=== PATIENT | male | born 1960 | race Caucasian/White ===

== ENCOUNTER 2023-02-20 21:43 | Inpatient (IN) | payer SELFPAY ==
[2023-02-20 22:30] LABS: #Basophils 0.1 thou/uL (0.0-0.2); #Eosinphils 0.2 thou/uL (0.0-0.7); #Monocytes 0.9 thou/uL (0.11-0.59); #Neutrophils 10.6 thou/uL (1.40-6.50); %Basophils 0.5 % (0.0-1.0); %Eosinophils 1.5 % (0.0-10.0); %Lymphocytes 13.2 % (21.0-51.0); %Monocytes 6.2 % (0.0-10.0); %Neutrophils 76.4 % (42.0-75.0); Hematocrit 32.8 % (42.0-52.0); Hemoglobin 11.3 g/dL (14.0-18.0); Mean Corpuscular HGB CONC 34.5 g/dL (32.0-36.0); Mean Corpuscular Hemoglobin 32.8 pg (27.0-31.0); Mean Corpuscular Volume 95.1 fl (78.0-98.0); Mean Platelet Volume 10.2 fL (7.4-10.4); Platelet Count 160 10x3/uL (130-400); RBC Distribution Width 13.3 % (11.5-14.5); Red Blood Cell (RBC) Count 3.45 mill/uL (4.70-6.10); White Blood Cell (WBC) Count 13.8 10x3/uL (4.8-10.8)
[2023-02-20 22:56] LABS: ALT (SGPT) 39 U/L (8-55); AST (SGOT) 39 U/L (5-34); Albumin 3.7 g/dL (3.4-4.8); Alkaline Phosphatase 58 U/L (40-110); Anion Gap 11 mmol/L (10-20); BUN (Urea Nitrogen) 71 mg/dL (8.4-25.7); Bilirubin, Total 0.3 mg/dL (0.2-1.2); Calc. Creatinine Clearance 0 mL/min (70-130); Calcium 9.1 mg/dL (7.8-10.44); Carbon Dioxide 22 mmol/L (23-31); Chloride 110 mmol/L (98-107); Estimated GFR 47; Globulin 2.5 g/dL (2.4-3.5); Glucose 233 mg/dL (80-115); Lipase 82 U/L (8-78); Potassium 5.3 mmol/L (3.5-5.1); Protein, Total 6.2 g/dL (5.8-8.1); Sodium 138 mmol/L (136-145)
[2023-02-20 23:28] LABS: Bacteria/HPF None Seen HPF (None Seen); Bilirubin Negative (Negative); Blood, Urine Negative (Negative); CAUTI Indications for Culture Fever or rigors; Clarity Clear (Clear); Glucose, Urine (Dipstick) Greater than 1000 mg/dL (Negative); Ketone, Urine Negative (Negative); Leukocyte Negative Leu/uL (Negative); Nitrite Negative (Negative); Protein, Urine (Dipstick) Negative (Neg-Trace); RBC/HPF 0-3 HPF (0-3); Specific Gravity, Urine 1.023 (1.002-1.036); Squamous Epithelial None Seen HPF (0-3); Urobilinogen Normal mg/dL (Less than 2); WBC/HPF 0-3 HPF (0-3)
[2023-02-20 23:29] LABS: Critical Call Chem Troponin I NUR.JLS2@2328
[2023-02-20 23:42] LABS: Urine Culture Reflex No No
[2023-02-20] MEDS ORDERED: Pantoprazole 40 MG VIAL ONE (23:44)
[2023-02-21] MEDS ORDERED: Glucagon 1 MG/ML KIT IM PRN (00:29)
[2023-02-21] MEDS ORDERED: Dextrose 5% in Water 1,000 ML IV PRN (00:29)
[2023-02-21] MEDS ORDERED: HumaLOG 300 UNITS/3 ML VIAL SC PRN (00:29)
[2023-02-21] MEDS ORDERED: Dextrose 50% Abboject 50 ML SYRINGE SLOW IVP PRN (00:29)
[2023-02-21] MEDS ORDERED: Ondansetron ODT 4 MG TAB PO PRN (00:30)
[2023-02-21] MEDS ORDERED: Ondansetron PF 4 MG/2 ML Vial IVP PRN (00:30)
[2023-02-21] MEDS ORDERED: Insulin Regular 300 UNITS/3 ML VIAL IVP SCH (00:30)
[2023-02-21] MEDS ORDERED: Pantoprazole 80 MG in Sodium Chloride 0.9% 100 ML IVP SCH (00:30)
[2023-02-21] MEDS ORDERED: Acetaminophen 500 MG TAB ONE (00:54)
[2023-02-21] MEDS ORDERED: fentaNYL 50 mcg/mL 1 mL Vial ONE ×2 (00:55→11:01)
[2023-02-21] MEDS ORDERED: Pantoprazole 80 MG, Admixture Fee 1 EACH in Sodium Chloride 0.9% 100 ML IVPB SCH (02:00)
[2023-02-21] MEDS: Dextrose 5 %-0.45 % NaCl 1,000 ML IV SCH ×2 (03:00→11:17)
[2023-02-21 04:41] LABS: #Basophils 0.1 thou/uL (0.0-0.2); #Eosinphils 0.3 thou/uL (0.0-0.7); #Monocytes 0.9 thou/uL (0.11-0.59); #Neutrophils 7.7 thou/uL (1.40-6.50); %Basophils 0.4 % (0.0-1.0); %Eosinophils 2.2 % (0.0-10.0); %Lymphocytes 22.9 % (21.0-51.0); %Monocytes 7.3 % (0.0-10.0); %Neutrophils 65.4 % (42.0-75.0); Hematocrit 35.7 % (42.0-52.0); Hemoglobin 12.3 g/dL (14.0-18.0); Mean Corpuscular HGB CONC 34.5 g/dL (32.0-36.0); Mean Corpuscular Hemoglobin 31.6 pg (27.0-31.0); Mean Platelet Volume 9.8 fL (7.4-10.4); Platelet Count 143 10x3/uL (130-400); RBC Distribution Width 15.2 % (11.5-14.5); Red Blood Cell (RBC) Count 3.89 mill/uL (4.70-6.10); White Blood Cell (WBC) Count 11.7 10x3/uL (4.8-10.8)
[2023-02-21 04:47] LABS: Mean Corpuscular Volume 91.8 fl (78.0-98.0)
[2023-02-21 04:58] LABS: Lactic Acid 0.7 mmol/L (0.5-2.2)
[2023-02-21 05:12] LABS: Anion Gap 11 mmol/L (10-20); BUN (Urea Nitrogen) 61 mg/dL (8.4-25.7); Calc. Creatinine Clearance 81 mL/min (70-130); Calcium 8.5 mg/dL (7.8-10.44); Carbon Dioxide 18 mmol/L (23-31); Chloride 115 mmol/L (98-107); Estimated GFR 59; Glucose 159 mg/dL (80-115); Potassium 4.6 mmol/L (3.5-5.1); Sodium 139 mmol/L (136-145)
[2023-02-21 06:47] LABS: Critical Call Chem Troponin I NUR.MGD@0645; Troponin I 14.698 ng/mL (< 0.028)
[2023-02-21 08:01] LABS: Hematocrit 36.3 % (42.0-52.0)
[2023-02-21 08:31] LABS: Troponin I 19.322 ng/mL (< 0.028)
[2023-02-21] MEDS ORDERED: FLU VACC QS2023-24(6MOS UP)/PF 60 MCG/0.5 ML SYRINGE IM ONE (09:00)
[2023-02-21] MEDS ORDERED: Heparin 25,000 units/D5W 500 ML IV SCH (10:00)
[2023-02-21] MEDS ORDERED: Heparin 10,000 UNITS/ 10 ML VIAL SLOW IVP SCH (10:00)
[2023-02-21] MEDS ORDERED: Verapamil 5 MG/2 ML VIAL ONE (11:01)
[2023-02-21] MEDS ORDERED: Adenosine 6 mg (2 mL) VIAL ONE (11:01)
[2023-02-21] MEDS ORDERED: Heparin 10,000 UNITS/ 10 ML VIAL ONE (11:01)
[2023-02-21] MEDS ORDERED: Midazolam HCl 2 mg/2 ml Vial ONE (11:01)
[2023-02-21] MEDS ORDERED: Nitroglycerin 50 MG/250 ML BOT 250 ML ONE (11:02)
[2023-02-21] MEDS ORDERED: Lidocaine 1% (PF) 30 ML VIAL ONE (11:02)
[2023-02-21] MEDS ORDERED: Communication Order-Pharmacy FS SCH (11:30)
[2023-02-21] MEDS ORDERED: DOPamine 400 MG/D5W 250 ML 0 ML ONE (12:19)
[2023-02-21] MEDS ORDERED: Furosemide 40 MG (4 mL) VIAL ONE ×2 (13:22→13:32)
[2023-02-21] MEDS ORDERED: Iopamidol 370 76% 100 ML VIAL ONE (13:37)
[2023-02-21 15:47] LABS: Hematocrit 41.6 % (42.0-52.0)
[2023-02-21 16:27] LABS: Hematocrit 41.7 % (42.0-52.0)
[2023-02-21 20:48] LABS: Hematocrit 38.4 % (42.0-52.0)
[2023-02-22 04:24] LABS: #Basophils 0.1 thou/uL (0.0-0.2); #Eosinphils 0.2 thou/uL (0.0-0.7); #Monocytes 1.2 thou/uL (0.11-0.59); #Neutrophils 8.2 thou/uL (1.40-6.50); %Basophils 0.4 % (0.0-1.0); %Eosinophils 1.9 % (0.0-10.0); %Lymphocytes 21.8 % (21.0-51.0); %Monocytes 9.3 % (0.0-10.0); %Neutrophils 65.3 % (42.0-75.0); Hematocrit 37.9 % (42.0-52.0); Hemoglobin 12.9 g/dL (14.0-18.0); Mean Corpuscular Hemoglobin 31.2 pg (27.0-31.0); Mean Corpuscular Volume 91.8 fl (78.0-98.0); Mean Platelet Volume 9.9 fL (7.4-10.4); Platelet Count 173 10x3/uL (130-400); RBC Distribution Width 15.7 % (11.5-14.5); Red Blood Cell (RBC) Count 4.13 mill/uL (4.70-6.10); White Blood Cell (WBC) Count 12.6 10x3/uL (4.8-10.8)
[2023-02-22 04:50] LABS: ALT (SGPT) 46 U/L (8-55); AST (SGOT) 97 U/L (5-34); Alkaline Phosphatase 68 U/L (40-110); Anion Gap 14 mmol/L (10-20); BUN (Urea Nitrogen) 38 mg/dL (8.4-25.7); Bilirubin, Total 0.9 mg/dL (0.2-1.2); Calc. Creatinine Clearance 81 mL/min (70-130); Calcium 9.2 mg/dL (7.8-10.44); Carbon Dioxide 20 mmol/L (23-31); Chloride 107 mmol/L (98-107); Estimated GFR 59; Globulin 2.9 g/dL (2.4-3.5); Glucose 156 mg/dL (80-115); Potassium 4.1 mmol/L (3.5-5.1); Protein, Total 6.9 g/dL (5.8-8.1); Sodium 137 mmol/L (136-145)
[2023-02-22] MEDS: HumaLOG 300 UNITS/3 ML VIAL SC PRN ×2 (10:35→16:45)
[2023-02-22] MEDS ORDERED: Insulin Glargine 30 UNITS/0.3 ML VIAL SC SCH (11:15)
[2023-02-22] MEDS: Nicotine 14 MG PATCH TOP SCH (18:38)
[2023-02-22] MEDS: Insulin Glargine 30 UNITS/0.3 ML VIAL SC SCH (20:53)
[2023-02-22] MEDS: Metoprolol Tartrate 50 MG TAB PO SCH (20:54)
[2023-02-22] MEDS: Pantoprazole 40 MG VIAL IVP SCH (20:54)
[2023-02-23 06:50] LABS: #Eosinphils 0.3 thou/uL (0.0-0.7); #Neutrophils 4.2 thou/uL (1.40-6.50); %Basophils 0.5 % (0.0-1.0); %Eosinophils 3.9 % (0.0-10.0); %Lymphocytes 29.6 % (21.0-51.0); %Neutrophils 52.9 % (42.0-75.0); Hematocrit 33.2 % (42.0-52.0); Hemoglobin 11.3 g/dL (14.0-18.0); Mean Corpuscular Hemoglobin 31.4 pg (27.0-31.0); Mean Corpuscular Volume 92.2 fl (78.0-98.0); Platelet Count 143 10x3/uL (130-400); RBC Distribution Width 15.2 % (11.5-14.5)
[2023-02-23] MEDS: Levothyroxine 150 MCG TAB PO SCH (06:54)
[2023-02-23 07:03] LABS: Anion Gap 9 mmol/L (10-20); BUN (Urea Nitrogen) 27 mg/dL (8.4-25.7); Calc. Creatinine Clearance 85 mL/min (70-130); Calcium 8.6 mg/dL (7.8-10.44); Carbon Dioxide 25 mmol/L (23-31); Chloride 109 mmol/L (98-107); Estimated GFR 64; Glucose 134 mg/dL (80-115); Potassium 4.2 mmol/L (3.5-5.1); Sodium 139 mmol/L (136-145)
[2023-02-23] MEDS: Empagliflozin 25 MG TAB PO SCH (08:19)
[2023-02-23] MEDS: Pantoprazole 40 MG VIAL IVP SCH ×2 (08:19→20:26)
[2023-02-23] MEDS: Insulin Glargine 30 UNITS/0.3 ML VIAL SC SCH ×2 (08:20→20:27)
[2023-02-23] MEDS: Atorvastatin Calcium 40 MG TAB PO SCH (08:21)
[2023-02-23] MEDS: Aspirin 81 mg Enteric Coated Tablet PO SCH (08:22)
[2023-02-23] MEDS: Metoprolol Tartrate 50 MG TAB PO SCH (08:39)
[2023-02-23] MEDS ORDERED: Lisinopril 20 MG TAB PO SCH (09:00)
[2023-02-23] MEDS ORDERED: Sodium Chloride 0.9% 250 ML IV SCH (14:45)
[2023-02-23] MEDS: Nicotine 14 MG PATCH TOP SCH (18:05)
[2023-02-24] MEDS: Metoprolol Tartrate 50 MG TAB PO SCH ×3 (00:19→20:34)
[2023-02-24] MEDS: Levothyroxine 150 MCG TAB PO SCH (06:09)
[2023-02-24] MEDS: Insulin Glargine 30 UNITS/0.3 ML VIAL SC SCH ×2 (09:05→20:34)
[2023-02-24] MEDS: Empagliflozin 25 MG TAB PO SCH (09:05)
[2023-02-24] MEDS: Atorvastatin Calcium 40 MG TAB PO SCH (09:05)
[2023-02-24] MEDS: Aspirin 81 mg Enteric Coated Tablet PO SCH (09:05)
[2023-02-24] MEDS: Pantoprazole 40 MG VIAL IVP SCH ×2 (09:06→20:34)
[2023-02-24] MEDS: Acetaminophen 325 MG TAB PO PRN (12:45)
[2023-02-24] MEDS: Nicotine 14 MG PATCH TOP SCH (18:28)
[2023-02-25] MEDS: Levothyroxine 150 MCG TAB PO SCH (05:41)
[2023-02-25 06:55] LABS: #Basophils 0.1 thou/uL (0.0-0.2); #Eosinphils 0.4 thou/uL (0.0-0.7); #Monocytes 0.8 thou/uL (0.11-0.59); #Neutrophils 5.1 thou/uL (1.40-6.50); %Basophils 0.6 % (0.0-1.0); %Eosinophils 4.8 % (0.0-10.0); %Lymphocytes 25.9 % (21.0-51.0); %Monocytes 8.7 % (0.0-10.0); %Neutrophils 59.3 % (42.0-75.0); Hemoglobin 11.9 g/dL (14.0-18.0); Mean Corpuscular Hemoglobin 31.8 pg (27.0-31.0); Mean Corpuscular Volume 93.6 fl (78.0-98.0); Mean Platelet Volume 10.2 fL (7.4-10.4); Platelet Count 180 10x3/uL (130-400); Red Blood Cell (RBC) Count 3.74 mill/uL (4.70-6.10); White Blood Cell (WBC) Count 8.6 10x3/uL (4.8-10.8)
[2023-02-25 07:12] LABS: Anion Gap 11 mmol/L (10-20); BUN (Urea Nitrogen) 25 mg/dL (8.4-25.7); Calc. Creatinine Clearance 90 mL/min (70-130); Carbon Dioxide 23 mmol/L (23-31); Chloride 105 mmol/L (98-107); Estimated GFR 67; Glucose 111 mg/dL (80-115); Sodium 135 mmol/L (136-145)
[2023-02-25] MEDS: Empagliflozin 25 MG TAB PO SCH (09:16)
[2023-02-25] MEDS: Insulin Glargine 30 UNITS/0.3 ML VIAL SC SCH ×2 (09:16→20:03)
[2023-02-25] MEDS: Atorvastatin Calcium 40 MG TAB PO SCH (09:16)
[2023-02-25] MEDS: Aspirin 81 mg Enteric Coated Tablet PO SCH (09:16)
[2023-02-25] MEDS: Pantoprazole 40 MG VIAL IVP SCH ×2 (09:16→20:06)
[2023-02-25] MEDS: Metoprolol Tartrate 50 MG TAB PO SCH ×2 (09:16→20:06)
[2023-02-25] MEDS: Acetaminophen 325 MG TAB PO PRN ×2 (09:18→22:12)
[2023-02-25] MEDS: Nicotine 14 MG PATCH TOP SCH (18:08)
[2023-02-26] MEDS: Levothyroxine 150 MCG TAB PO SCH (06:03)
[2023-02-26 09:19] LABS: #Basophils 0.1 thou/uL (0.0-0.2); #Monocytes 1.1 thou/uL (0.11-0.59); #Neutrophils 12.2 thou/uL (1.40-6.50); %Basophils 0.4 % (0.0-1.0); %Eosinophils 0.2 % (0.0-10.0); %Lymphocytes 12.3 % (21.0-51.0); %Monocytes 7.1 % (0.0-10.0); %Neutrophils 79.7 % (42.0-75.0); Hematocrit 33.7 % (42.0-52.0); Hemoglobin 11.2 g/dL (14.0-18.0); Manual Diff?? YES; Mean Corpuscular HGB CONC 33.2 g/dL (32.0-36.0); Mean Corpuscular Hemoglobin 30.4 pg (27.0-31.0); Mean Corpuscular Volume 91.6 fl (78.0-98.0); Mean Platelet Volume 9.9 fL (7.4-10.4); Platelet Count 214 10x3/uL (130-400); RBC Distribution Width 13.2 % (11.5-14.5); Red Blood Cell (RBC) Count 3.68 mill/uL (4.70-6.10); White Blood Cell (WBC) Count 15.2 10x3/uL (4.8-10.8)
[2023-02-26 09:32] LABS: Anion Gap 9 mmol/L (10-20); BUN (Urea Nitrogen) 10 mg/dL (8.4-25.7); Calc. Creatinine Clearance 165 mL/min (70-130); Calcium 8.2 mg/dL (7.8-10.44); Carbon Dioxide 29 mmol/L (23-31); Chloride 105 mmol/L (98-107); Estimated GFR 105; Glucose 116 mg/dL (80-115); Potassium 3.7 mmol/L (3.5-5.1); Sodium 139 mmol/L (136-145)
[2023-02-26] MEDS: Atorvastatin Calcium 40 MG TAB PO SCH (09:37)
[2023-02-26] MEDS: Pantoprazole 40 MG VIAL IVP SCH ×2 (09:37→20:37)
[2023-02-26] MEDS: Aspirin 81 mg Enteric Coated Tablet PO SCH (09:37)
[2023-02-26] MEDS: Empagliflozin 25 MG TAB PO SCH (09:38)
[2023-02-26] MEDS: Insulin Glargine 30 UNITS/0.3 ML VIAL SC SCH ×2 (09:38→20:37)
[2023-02-26] MEDS: Metoprolol Tartrate 50 MG TAB PO SCH (09:42)
[2023-02-26 10:02] LABS: Band 27 % (5-11); CellaVision Operator ID LAB.KW3; Lymphocytes 14 % (21-51); Monocytes 3 % (0-10); Neutrophil 55 % (42-75); Platelet Adequacy Comment Platelets Normal; RBC Morphology Within Normal Limits; Total Cell Count 100
[2023-02-26] MEDS ORDERED: Polyethylene Glycol 3350 17 GM Packet PO PRN (10:04)
[2023-02-26] MEDS ORDERED: Glycerin Adult Supp. (24 ct jar) PR PRN (10:04)
[2023-02-26] MEDS ORDERED: Polyethylene Glycol 3350 17 GM Packet PO SCH (10:15)
[2023-02-26] MEDS: Nicotine 14 MG PATCH TOP SCH (18:26)
[2023-02-27] MEDS: Atorvastatin Calcium 40 MG TAB PO SCH ×2 (05:12→20:11)
[2023-02-27] MEDS: Levothyroxine 150 MCG TAB PO SCH (05:13)
[2023-02-27] MEDS ORDERED: Communication Order-Pharmacy FS SCH (06:00)
[2023-02-27] MEDS ORDERED: Heparin 10,000 UNITS/1 ML VIAL 30,000 UNITS in Sodium Chloride 0.9% 1,000 ML FS SCH (07:00)
[2023-02-27] MEDS ORDERED: fentaNYL PF 100 MCG/2 ML SYRINGE ONE (08:53)
[2023-02-27] MEDS ORDERED: Lidocaine 2% PF 5 ML VIAL ONE (08:53)
[2023-02-27] MEDS ORDERED: Vecuronium 10 MG VIAL ONE (08:53)
[2023-02-27] MEDS ORDERED: Etomidate 40 MG (20 mL) VIAL ONE (08:53)
[2023-02-27] MEDS ORDERED: PROPOFOL 20 ML ONE (08:53)
[2023-02-27] MEDS ORDERED: Dexamethasone 20 MG/5 ML VIAL ONE (08:55)
[2023-02-27] MEDS ORDERED: PHENYLEPHRINE-NS 100 MCG/ML 10 ML SYRINGE ONE ×3 (08:58→13:21)
[2023-02-27] MEDS ORDERED: Midazolam HCl 2 mg/2 ml Vial ONE ×4 (08:59→09:36)
[2023-02-27] MEDS ORDERED: Polyethylene Glycol 3350 17 GM Packet PO SCH (09:00)
[2023-02-27] MEDS ORDERED: Dexmedetomidine 200 MCG/2 ML VIAL ONE (09:01)
[2023-02-27] MEDS ORDERED: NOREPINEPHRINE 8 MG/250 ML-D5W 250 ML ONE (09:01)
[2023-02-27] MEDS ORDERED: ePHEDrine Sulfate 50 MG/10 ML VIAL ONE (09:03)
[2023-02-27] MEDS ORDERED: EPINEPHrine 1 MG/ML VIAL ONE (09:10)
[2023-02-27] MEDS ORDERED: Bupivacaine PF 0.5% 30 ML VIAL ONE (09:10)
[2023-02-27] MEDS ORDERED: Albumin 5% 500 ML ONE (09:10)
[2023-02-27] MEDS ORDERED: Dexamethasone 4 mg/ml Vial ONE (09:10)
[2023-02-27] MEDS ORDERED: Ondansetron ODT 4 MG TAB ONE (09:23)
[2023-02-27] MEDS ORDERED: Lidocaine 1% PF 5 ML VIAL ONE (09:27)
[2023-02-27] MEDS ORDERED: fentaNYL 50 mcg/mL 1 mL Vial ONE ×2 (09:36→13:03)
[2023-02-27] MEDS ORDERED: CEFAZOLIN 2 GM VIAL ONE (09:46)
[2023-02-27] MEDS ORDERED: Sodium Chloride 0.9% 100 ML ONE (09:46)
[2023-02-27] MEDS ORDERED: CEFAZOLIN 2 GM in Sodium Chloride 0.9% 100 ML IVPB SCH (10:00)
[2023-02-27] MEDS ORDERED: Vancomycin (BATCH) 2 GM in Premix 1 BAG IVPB SCH (10:00)
[2023-02-27] MEDS ORDERED: VANCOMYCIN IVPB SCH (10:00)
[2023-02-27] MEDS ORDERED: Protamine Sulfate 250 MG/25 ML VIAL ONE (10:27)
[2023-02-27] MEDS ORDERED: Mannitol 12.5 GM/50 ML ONE (10:27)
[2023-02-27] MEDS ORDERED: SUCCINYLCHOLINE/SOD CL,ISO/PF 200 MG/10 ML SYRINGE FS ONE (10:27)
[2023-02-27] MEDS ORDERED: Vancomycin 1 GM VIAL ONE (10:27)
[2023-02-27] MEDS ORDERED: Potassium Chloride 60 mEq (30 mL) VIAL ONE (10:27)
[2023-02-27] MEDS ORDERED: Heparin 30,000 units/30 ml VIAL ONE (10:27)
[2023-02-27] MEDS ORDERED: Aminocaproic Acid 5 GM/20 ML VIAL ONE (10:27)
[2023-02-27] MEDS ORDERED: Papaverine 60 MG/2 ML VIAL ONE (10:27)
[2023-02-27] MEDS ORDERED: Magnesium 5 GM/10 ML VIAL ONE (10:27)
[2023-02-27] MEDS ORDERED: Calcium Chloride 1 GM/10 ML Abboject SYRINGE ONE (10:27)
[2023-02-27] MEDS ORDERED: Lidocaine 2% PF 100 mg/5 ml Syringe ONE (10:27)
[2023-02-27] MEDS ORDERED: Sodium Bicarb 50 mEq/50 ML VIAL ONE (10:27)
[2023-02-27] MEDS ORDERED: Thrombin 5000 UNITS/5 ML VIAL ONE (10:27)
[2023-02-27] MEDS ORDERED: Rocuronium Bromide 10 MG/ML (10ML VIAL) ONE (10:27)
[2023-02-27] MEDS ORDERED: Insulin Regular 300 UNITS/3 ML VIAL ONE (12:54)
[2023-02-27] MEDS ORDERED: Acetaminophen 325 MG TAB PO PRN (13:30)
[2023-02-27] MEDS ORDERED: Ondansetron PF 4 MG/2 ML Vial IVP PRN (13:30)
[2023-02-27] MEDS ORDERED: fentaNYL 50 mcg/mL 1 mL Vial SLOW IVP PRN (13:30)
[2023-02-27] MEDS ORDERED: Promethazine HCl 25 MG/ML VIAL IM PRN (13:30)
[2023-02-27] MEDS ORDERED: Nitroglycerin 50 MG/250 ML BOT 250 ML IVPB PRN (13:30)
[2023-02-27] MEDS ORDERED: Hetastarch 6% 500 ML 500 ML IVPB PRN (13:30)
[2023-02-27] MEDS ORDERED: hydrALAZINE 20 MG/ML VIAL SLOW IVP PRN (13:30)
[2023-02-27] MEDS ORDERED: traMADol HCl 50 MG TAB PO PRN (13:30)
[2023-02-27] MEDS ORDERED: Post-Op Insulin Drip Protocol IVPB ONE (13:30)
[2023-02-27] MEDS ORDERED: Mag-Al 1200 mg/1200 mg/30 ML UDCUP PO PRN (13:30)
[2023-02-27] MEDS ORDERED: Ipratropium/Albuterol 3 ML NEB NEB PRN (13:30)
[2023-02-27] MEDS ORDERED: Guaifenesin DM 100-10/5 ML UDCUP PO PRN (13:30)
[2023-02-27] MEDS ORDERED: Bisacodyl 5 MG TAB PO PRN (13:30)
[2023-02-27] MEDS ORDERED: D5 1/2 NS w/20 mEq KCL 1,000 ML IV SCH (13:30)
[2023-02-27] MEDS ORDERED: Magnesium 2 GM/50 ML(in water) 2 GM in Premix 1 BAG IVPB SCH (13:30)
[2023-02-27] MEDS ORDERED: Albumin 5% 12.5 GM (250 mL) BOT IVPB PRN ×2 (13:30)
[2023-02-27] MEDS ORDERED: Bisacodyl 10 MG SUPP PR PRN (13:30)
[2023-02-27] MEDS ORDERED: Glucagon 1 MG/ML KIT SC PRN (13:45)
[2023-02-27] MEDS ORDERED: HUMULIN R 100 UNITS in Sodium Chloride 0.9% 100 ML IVPB SCH (13:45)
[2023-02-27] MEDS ORDERED: Dextrose 50% Abboject 50 ML SYRINGE SLOW IVP PRN (13:45)
[2023-02-27] MEDS ORDERED: Dextrose 5% in Water 1,000 ML IV PRN (13:45)
[2023-02-27] MEDS: Morphine 2 MG/ML VIAL SLOW IVP PRN ×5 (14:00→15:00)
[2023-02-27 14:10] LABS: #Basophils 0.1 thou/uL (0.0-0.2); #Eosinphils 0.2 thou/uL (0.0-0.7); #Monocytes 1.3 thou/uL (0.11-0.59); #Neutrophils 14.7 thou/uL (1.40-6.50); %Basophils 0.5 % (0.0-1.0); %Eosinophils 1.2 % (0.0-10.0); %Lymphocytes 11.9 % (21.0-51.0); %Monocytes 6.9 % (0.0-10.0); %Neutrophils 77.4 % (42.0-75.0); Hematocrit 34.2 % (42.0-52.0); Hemoglobin 11.4 g/dL (14.0-18.0); Mean Corpuscular HGB CONC 33.3 g/dL (32.0-36.0); Mean Corpuscular Hemoglobin 31.6 pg (27.0-31.0); Mean Corpuscular Volume 94.7 fl (78.0-98.0); Mean Platelet Volume 9.5 fL (7.4-10.4); Platelet Count 162 10x3/uL (130-400); RBC Distribution Width 15.1 % (11.5-14.5); Red Blood Cell (RBC) Count 3.61 mill/uL (4.70-6.10); White Blood Cell (WBC) Count 18.9 10x3/uL (4.8-10.8)
[2023-02-27 14:24] LABS: INR-International Normal Ratio 1.2; Prothrombin Time 15.7 sec (12.0-14.7)
[2023-02-27 14:25] LABS: PTT 29.1 sec (22.9-36.1)
[2023-02-27] MEDS: CEFAZOLIN 2 GM in Sodium Chloride 0.9% 100 ML IVPB SCH ×2 (14:25→21:24)
[2023-02-27] MEDS: fentaNYL 50 mcg/mL 1 mL Vial SLOW IVP PRN ×2 (14:30→20:12)
[2023-02-27 14:37] LABS: Actual Bicarbonate (HCO3a) 20.6 mEq/L (22-28); Base Excess (BEa) -6.5 mEq/L (-2.0 to +3.0); CO2 Tension 47.9 mmHg (35.0-45.0); Calcium, Ionized (arterial) 1.11 mmol/L (1.12-1.30); Carboxyhemoglobin (COHb) 0.2 gm% (0.0-3.0); Hematocrit-ABG 34 % (42.0-52.0); Hemoglobin (Hb) 11.4 g/dL (14.0-18.0); O2 Tension (PaO2), arterial 87.8 mmHg (> 80.0); Potassium - ABG Lab 3.63 mmol/L (3.70-5.30); pH, Arterial 7.252 (7.35-7.45)
[2023-02-27 14:50] LABS: Anion Gap 11 mmol/L (10-20); BUN (Urea Nitrogen) 20 mg/dL (8.4-25.7); Calc. Creatinine Clearance 102 mL/min (70-130); Carbon Dioxide 24 mmol/L (23-31); Chloride 110 mmol/L (98-107); Estimated GFR 77; Glucose 102 mg/dL (80-115); Potassium 3.7 mmol/L (3.5-5.1); Sodium 141 mmol/L (136-145)
[2023-02-27] MEDS ORDERED: Albumin 25% 0 ML ONE (15:24)
[2023-02-27 15:41] LABS: ALV-art Gradient 565.325 mmHg (0-20); Puncture Site ALINE
[2023-02-27] MEDS: Ketorolac Tromethamine 30 MG (1 mL) VIAL IVP SCH (16:55)
[2023-02-27] MEDS: Insulin Regular 300 UNITS/3 ML VIAL SC PRN ×2 (17:05→19:23)
[2023-02-27] MEDS: traMADol HCl 50 MG TAB PO PRN (18:00)
[2023-02-27] MEDS: Ipratropium/Albuterol 3 ML NEB NEB SCH ×2 (18:13→23:43)
[2023-02-27 19:35] LABS: Hematocrit 31.5 % (42.0-52.0); Hemoglobin 10.7 g/dL (14.0-18.0)
[2023-02-27] MEDS: Vancomycin (BATCH) 1.5 GM in Premix 1 BAG IVPB SCH (20:11)
[2023-02-27] MEDS ORDERED: Famotidine/PF 20 mg/2ml Vial SLOW IVP SCH (21:00)
[2023-02-28] MEDS: Insulin Regular 300 UNITS/3 ML VIAL SC PRN ×3 (00:13→20:44)
[2023-02-28] MEDS: Ketorolac Tromethamine 30 MG (1 mL) VIAL IVP SCH ×5 (00:17→23:13)
[2023-02-28 04:46] LABS: #Monocytes 1.1 thou/uL (0.11-0.59); #Neutrophils 12.1 thou/uL (1.40-6.50); %Basophils 0.1 % (0.0-1.0); %Lymphocytes 6.5 % (21.0-51.0); %Monocytes 7.4 % (0.0-10.0); %Neutrophils 85.2 % (42.0-75.0); Hematocrit 30.5 % (42.0-52.0); Hemoglobin 10.2 g/dL (14.0-18.0); Mean Corpuscular HGB CONC 33.4 g/dL (32.0-36.0); Mean Corpuscular Hemoglobin 31.2 pg (27.0-31.0); Mean Corpuscular Volume 93.3 fl (78.0-98.0); Mean Platelet Volume 9.8 fL (7.4-10.4); Platelet Count 180 10x3/uL (130-400); RBC Distribution Width 15.2 % (11.5-14.5); Red Blood Cell (RBC) Count 3.27 mill/uL (4.70-6.10); White Blood Cell (WBC) Count 14.2 10x3/uL (4.8-10.8)
[2023-02-28 05:13] LABS: Anion Gap 12 mmol/L (10-20); BUN (Urea Nitrogen) 22 mg/dL (8.4-25.7); Calc. Creatinine Clearance 96 mL/min (70-130); Calcium 7.9 mg/dL (7.8-10.44); Carbon Dioxide 18 mmol/L (23-31); Chloride 108 mmol/L (98-107); Estimated GFR 71; Glucose 153 mg/dL (80-115); Potassium 4.6 mmol/L (3.5-5.1); Sodium 133 mmol/L (136-145)
[2023-02-28] MEDS: Ipratropium/Albuterol 3 ML NEB NEB SCH ×3 (07:20→18:58)
[2023-02-28] MEDS ORDERED: Dextrose 50% Abboject 50 ML SYRINGE SLOW IVP PRN (07:29)
[2023-02-28] MEDS ORDERED: Dextrose 5% in Water 1,000 ML IV PRN (07:29)
[2023-02-28] MEDS ORDERED: Glucagon 1 MG/ML KIT IM PRN (07:29)
[2023-02-28] MEDS ORDERED: Albuterol 200 PUFF (6.7GM INHALER) INH PRN (07:30)
[2023-02-28] MEDS: Magnesium 2 GM/50 ML(in water) 2 GM in Premix 1 BAG IVPB SCH (08:43)
[2023-02-28] MEDS: fentaNYL 50 mcg/mL 1 mL Vial SLOW IVP PRN ×2 (08:43→20:26)
[2023-02-28] MEDS: Aspirin 325 MG TAB PO SCH (08:45)
[2023-02-28] MEDS: Vancomycin (BATCH) 1.5 GM in Premix 1 BAG IVPB SCH (09:06)
[2023-02-28] MEDS: traMADol HCl 50 MG TAB PO PRN (10:31)
[2023-02-28] MEDS: CEFAZOLIN 2 GM in Sodium Chloride 0.9% 100 ML IVPB SCH (18:29)
[2023-02-28] MEDS: Levothyroxine 150 MCG TAB PO SCH (18:37)
[2023-02-28] MEDS: Mometasone 200 MCG/Formoterol 5 MCG 120 PUFF INHALER INH SCH (19:02)
[2023-02-28] MEDS: Atorvastatin Calcium 40 MG TAB PO SCH (20:28)
[2023-03-01] MEDS: Ipratropium/Albuterol 3 ML NEB NEB SCH ×5 (02:03→23:23)
[2023-03-01] MEDS: Ketorolac Tromethamine 30 MG (1 mL) VIAL IVP SCH ×4 (05:32→23:54)
[2023-03-01] MEDS: Levothyroxine 150 MCG TAB PO SCH (05:33)
[2023-03-01] MEDS ORDERED: Furosemide 40 MG (4 mL) VIAL ONE (06:03)
[2023-03-01] MEDS ORDERED: Furosemide 40 MG (4 mL) VIAL SLOW IVP SCH (06:15)
[2023-03-01] MEDS: Mometasone 200 MCG/Formoterol 5 MCG 120 PUFF INHALER INH SCH ×2 (07:26→19:03)
[2023-03-01] MEDS: Aspirin 325 MG TAB PO SCH (08:30)
[2023-03-01] MEDS: Magnesium 2 GM/50 ML(in water) 2 GM in Premix 1 BAG IVPB SCH (08:30)
[2023-03-01] MEDS: NOREPINEPHRINE 8 MG/250 ML-D5W 250 ML IVPB PRN (11:17)
[2023-03-01] MEDS: fentaNYL 50 mcg/mL 1 mL Vial SLOW IVP PRN (11:23)
[2023-03-01] MEDS ORDERED: Furosemide 40 MG TAB PO SCH (16:00)
[2023-03-01] MEDS ORDERED: Albumin 25% 25 GM (100 mL) BOT IVPB SCH (17:00)
[2023-03-01] MEDS: Insulin Regular 300 UNITS/3 ML VIAL SC PRN ×2 (17:28→20:28)
[2023-03-01] MEDS ORDERED: methylPREDNISolone Sod Succ/PF 125 MG/2 ML VIAL IVP SCH (18:15)
[2023-03-01] MEDS: Atorvastatin Calcium 40 MG TAB PO SCH (20:33)
[2023-03-01 20:38] LABS: #Neutrophils 12.2 thou/uL (1.40-6.50); %Basophils 0.3 % (0.0-1.0); %Eosinophils 0.2 % (0.0-10.0); %Lymphocytes 6.2 % (21.0-51.0); %Monocytes 7.2 % (0.0-10.0); %Neutrophils 84.8 % (42.0-75.0); Hematocrit 31.1 % (42.0-52.0); Hemoglobin 10.4 g/dL (14.0-18.0); Mean Corpuscular HGB CONC 33.4 g/dL (32.0-36.0); Mean Corpuscular Hemoglobin 31.6 pg (27.0-31.0); Mean Corpuscular Volume 94.5 fl (78.0-98.0); Mean Platelet Volume 9.8 fL (7.4-10.4); Platelet Count 231 10x3/uL (130-400); RBC Distribution Width 15.3 % (11.5-14.5); Red Blood Cell (RBC) Count 3.29 mill/uL (4.70-6.10); White Blood Cell (WBC) Count 14.3 10x3/uL (4.8-10.8)
[2023-03-01 20:57] LABS: Magnesium 2.9 mg/dL (1.6-2.6); Phosphorus 4.9 mg/dL (2.3-4.7)
[2023-03-01 20:59] LABS: ALT (SGPT) 29 U/L (8-55); AST (SGOT) 45 U/L (5-34); Albumin 3.8 g/dL (3.4-4.8); Alkaline Phosphatase 86 U/L (40-110); Anion Gap 14 mmol/L (10-20); BUN (Urea Nitrogen) 38 mg/dL (8.4-25.7); Bilirubin, Total 1.3 mg/dL (0.2-1.2); Calc. Creatinine Clearance 65 mL/min (70-130); Calcium 8.5 mg/dL (7.8-10.44); Carbon Dioxide 20 mmol/L (23-31); Chloride 102 mmol/L (98-107); Estimated GFR 46; Globulin 2.5 g/dL (2.4-3.5); Glucose 210 mg/dL (80-115); Potassium 4.2 mmol/L (3.5-5.1); Protein, Total 6.3 g/dL (5.8-8.1); Sodium 132 mmol/L (136-145)
[2023-03-02] MEDS: Levothyroxine 150 MCG TAB PO SCH (05:21)
[2023-03-02] MEDS: Ketorolac Tromethamine 30 MG (1 mL) VIAL IVP SCH ×3 (05:21→18:38)
[2023-03-02] MEDS: Insulin Regular 300 UNITS/3 ML VIAL SC PRN ×2 (05:22→14:11)
[2023-03-02 05:39] LABS: #Monocytes 0.6 thou/uL (0.11-0.59); #Neutrophils 14.6 thou/uL (1.40-6.50); %Basophils 0.1 % (0.0-1.0); %Lymphocytes 4.5 % (21.0-51.0); %Monocytes 3.9 % (0.0-10.0); %Neutrophils 90.6 % (42.0-75.0); Hematocrit 30.2 % (42.0-52.0); Hemoglobin 10.1 g/dL (14.0-18.0); Mean Corpuscular HGB CONC 33.4 g/dL (32.0-36.0); Mean Corpuscular Hemoglobin 32.1 pg (27.0-31.0); Mean Corpuscular Volume 95.9 fl (78.0-98.0); Mean Platelet Volume 9.7 fL (7.4-10.4); Platelet Count 228 10x3/uL (130-400); RBC Distribution Width 15.6 % (11.5-14.5); Red Blood Cell (RBC) Count 3.15 mill/uL (4.70-6.10); White Blood Cell (WBC) Count 16.1 10x3/uL (4.8-10.8)
[2023-03-02 06:31] LABS: Anion Gap 14 mmol/L (10-20); BUN (Urea Nitrogen) 42 mg/dL (8.4-25.7); Calc. Creatinine Clearance 76 mL/min (70-130); Calcium 8.7 mg/dL (7.8-10.44); Carbon Dioxide 21 mmol/L (23-31); Chloride 102 mmol/L (98-107); Estimated GFR 53; Glucose 190 mg/dL (80-115); Potassium 4.7 mmol/L (3.5-5.1); Sodium 132 mmol/L (136-145)
[2023-03-02] MEDS: Mometasone 200 MCG/Formoterol 5 MCG 120 PUFF INHALER INH SCH ×2 (06:41→18:26)
[2023-03-02] MEDS: Ipratropium/Albuterol 3 ML NEB NEB SCH ×4 (06:41→23:59)
[2023-03-02] MEDS ORDERED: CEFAZOLIN 2 GM VIAL ONE (08:01)
[2023-03-02] MEDS ORDERED: Gentamicin 80 MG/2 ML VIAL ONE (08:01)
[2023-03-02] MEDS ORDERED: Lidocaine 1% (PF) 30 ML VIAL ONE (08:01)
[2023-03-02] MEDS ORDERED: Vancomycin (BATCH) 1.5 GM in Premix 1 BAG IVPB SCH ×2 (08:15→21:00)
[2023-03-02] MEDS ORDERED: Vasopressin 20 UNITS/ML VIAL ONE (08:35)
[2023-03-02] MEDS ORDERED: Albumin 5% 500 ML ONE (08:36)
[2023-03-02] MEDS ORDERED: Etomidate 40 MG (20 mL) VIAL ONE (08:36)
[2023-03-02] MEDS ORDERED: Midazolam HCl 2 mg/2 ml Vial ONE ×2 (08:48→09:50)
[2023-03-02] MEDS ORDERED: Ketamine In 0.9 % NaCl 50 MG/5 ML SYRINGE ONE (08:49)
[2023-03-02] MEDS ORDERED: Furosemide 40 MG TAB PO SCH (09:00)
[2023-03-02] MEDS ORDERED: NOREPINEPHRINE 8 MG/250 ML-D5W 250 ML ONE (09:14)
[2023-03-02] MEDS ORDERED: Albumin 25% 25 GM (100 mL) BOT IVPB SCH (10:15)
[2023-03-02] MEDS ORDERED: VANCOMYCIN IVPB PRN (10:16)
[2023-03-02] MEDS: Aspirin 325 MG TAB PO SCH (10:20)
[2023-03-02] MEDS ORDERED: Propofol 1,000 MG/100 ML VIAL IV ONE (11:33)
[2023-03-02] MEDS ORDERED: Iopamidol 370 76% 100 ML VIAL ONE (11:43)
[2023-03-02] MEDS ORDERED: Propofol 1,000 MG/100 ML VIAL IV PRN (11:45)
[2023-03-02] MEDS ORDERED: Fentanyl BOLUS 250 ML IVPB PRN (11:45)
[2023-03-02] MEDS ORDERED: Propofol BOLUS 1,000 MG/100 ML VIAL IV PRN (11:45)
[2023-03-02] MEDS ORDERED: Morphine 2 MG/ML VIAL SLOW IVP PRN (11:45)
[2023-03-02] MEDS ORDERED: Ventilator Sedation Protocol FS SCH (11:45)
[2023-03-02] MEDS ORDERED: DISCONTINUE PREVIOUS NARCOTIC PAIN MEDICATIONS AND BENZODIAZEPINES FS SCH (11:45)
[2023-03-02] MEDS ORDERED: Lorazepam 2 MG/ML VIAL SLOW IVP PRN (11:45)
[2023-03-02] MEDS: LevoFLOXacin 750 mg/D5W 750 MG in Premix 1 BAG IVPB SCH (11:46)
[2023-03-02] MEDS ORDERED: Meropenem 1 GM in Sodium Chloride 0.9% 100 ML IVPB SCH ×2 (13:30→14:00)
[2023-03-02] MEDS: Furosemide 40 MG (4 mL) VIAL SLOW IVP SCH (13:49)
[2023-03-02] MEDS: Fentanyl CADD 100 ML IV SCH (14:20)
[2023-03-02] MEDS: Albumin 25% 25 GM (100 mL) BOT IVPB SCH (20:57)
[2023-03-02] MEDS: Atorvastatin Calcium 40 MG TAB PO SCH (20:57)
[2023-03-02] MEDS: Vancomycin HCl 750 MG in Sodium Chloride 0.9% 250 ML 250 ML IVPB SCH (20:57)
[2023-03-02] MEDS: Meropenem 1 GM in Sodium Chloride 0.9% 100 ML IVPB SCH (20:57)
[2023-03-02] MEDS ORDERED: Midazolam HCl 2 mg/2 ml Vial SLOW IVP SCH (21:45)
[2023-03-03] MEDS: Fentanyl CADD 100 ML IV SCH (03:39)
[2023-03-03 04:07] LABS: #Monocytes 0.9 thou/uL (0.11-0.59); #Neutrophils 8.8 thou/uL (1.40-6.50); %Basophils 0.1 % (0.0-1.0); %Eosinophils 0.1 % (0.0-10.0); %Lymphocytes 10.5 % (21.0-51.0); %Monocytes 8.1 % (0.0-10.0); %Neutrophils 80.3 % (42.0-75.0); Hematocrit 26.9 % (42.0-52.0); Hemoglobin 8.8 g/dL (14.0-18.0); Mean Corpuscular HGB CONC 32.7 g/dL (32.0-36.0); Mean Corpuscular Hemoglobin 31.8 pg (27.0-31.0); Mean Corpuscular Volume 97.1 fl (78.0-98.0); Platelet Count 205 10x3/uL (130-400); RBC Distribution Width 15.3 % (11.5-14.5); Red Blood Cell (RBC) Count 2.77 mill/uL (4.70-6.10); White Blood Cell (WBC) Count 10.9 10x3/uL (4.8-10.8)
[2023-03-03 04:33] LABS: Anion Gap 17 mmol/L (10-20); BUN (Urea Nitrogen) 55 mg/dL (8.4-25.7); Calc. Creatinine Clearance 70 mL/min (70-130); Calcium 8.8 mg/dL (7.8-10.44); Carbon Dioxide 22 mmol/L (23-31); Chloride 104 mmol/L (98-107); Estimated GFR 48; Glucose 132 mg/dL (80-115); Potassium 4.3 mmol/L (3.5-5.1); Sodium 139 mmol/L (136-145)
[2023-03-03] MEDS: Meropenem 1 GM in Sodium Chloride 0.9% 100 ML IVPB SCH ×3 (06:19→22:58)
[2023-03-03] MEDS: Levothyroxine 150 MCG TAB PO SCH (06:20)
[2023-03-03] MEDS: Furosemide 40 MG (4 mL) VIAL SLOW IVP SCH ×2 (06:20→15:07)
[2023-03-03] MEDS: Ipratropium/Albuterol 3 ML NEB NEB SCH ×4 (07:29→23:03)
[2023-03-03] MEDS: Mometasone 200 MCG/Formoterol 5 MCG 120 PUFF INHALER INH SCH ×2 (07:30→18:48)
[2023-03-03] MEDS: Vancomycin HCl 750 MG in Sodium Chloride 0.9% 250 ML 250 ML IVPB SCH ×2 (07:39→20:09)
[2023-03-03 07:47] LABS: Actual Bicarbonate (HCO3a) 21.8 mEq/L (22-28); Base Excess (BEa) -3.7 mEq/L (-2.0 to +3.0); CO2 Tension 41.3 mmHg (35.0-45.0); Calcium, Ionized (arterial) 1.16 mmol/L (1.12-1.30); Carboxyhemoglobin (COHb) 1.2 gm% (0.0-3.0); Hematocrit-ABG 45 % (42.0-52.0); Hemoglobin (Hb) 15.4 g/dL (14.0-18.0); O2 Tension (PaO2), arterial 65.2 mmHg (> 80.0); Potassium - ABG Lab 4.14 mmol/L (3.70-5.30); pH, Arterial 7.341 (7.35-7.45)
[2023-03-03 07:58] LABS: Puncture Site RRA
[2023-03-03 07:59] LABS: ALV-art Gradient 239.675 mmHg (0-20)
[2023-03-03] MEDS: Albumin 25% 25 GM (100 mL) BOT IVPB SCH (09:13)
[2023-03-03] MEDS: Aspirin 325 MG TAB PO SCH (09:14)
[2023-03-03] MEDS ORDERED: DC Sedation Protocol FS ONE (11:10)
[2023-03-03] MEDS: LevoFLOXacin 750 mg/D5W 750 MG in Premix 1 BAG IVPB SCH (11:12)
[2023-03-03] MEDS: Atorvastatin Calcium 40 MG TAB PO SCH (20:08)
[2023-03-04] MEDS ORDERED: diphenhydrAMINE 50 MG/ML VIAL IVP SCH (00:15)
[2023-03-04 03:42] LABS: #Eosinphils 0.1 thou/uL (0.0-0.7); #Monocytes 1.3 thou/uL (0.11-0.59); #Neutrophils 10.2 thou/uL (1.40-6.50); %Basophils 0.2 % (0.0-1.0); %Eosinophils 0.6 % (0.0-10.0); %Lymphocytes 10.1 % (21.0-51.0); %Monocytes 9.5 % (0.0-10.0); %Neutrophils 76.7 % (42.0-75.0); Hematocrit 28.1 % (42.0-52.0); Hemoglobin 9.3 g/dL (14.0-18.0); Mean Corpuscular HGB CONC 33.1 g/dL (32.0-36.0); Mean Corpuscular Hemoglobin 31.6 pg (27.0-31.0); Mean Corpuscular Volume 95.6 fl (78.0-98.0); Mean Platelet Volume 9.6 fL (7.4-10.4); Platelet Count 221 10x3/uL (130-400); RBC Distribution Width 15.3 % (11.5-14.5); Red Blood Cell (RBC) Count 2.94 mill/uL (4.70-6.10); White Blood Cell (WBC) Count 13.3 10x3/uL (4.8-10.8)
[2023-03-04 04:19] LABS: Anion Gap 16 mmol/L (10-20); BUN (Urea Nitrogen) 49 mg/dL (8.4-25.7); Calc. Creatinine Clearance 83 mL/min (70-130); Calcium 8.7 mg/dL (7.8-10.44); Carbon Dioxide 23 mmol/L (23-31); Chloride 103 mmol/L (98-107); Estimated GFR 60; Glucose 130 mg/dL (80-115); Potassium 3.9 mmol/L (3.5-5.1); Sodium 138 mmol/L (136-145)
[2023-03-04] MEDS: Furosemide 40 MG (4 mL) VIAL SLOW IVP SCH ×2 (06:07→14:17)
[2023-03-04] MEDS: Meropenem 1 GM in Sodium Chloride 0.9% 100 ML IVPB SCH ×3 (06:07→22:05)
[2023-03-04] MEDS: NOREPINEPHRINE 8 MG/250 ML-D5W 250 ML IVPB PRN (06:07)
[2023-03-04] MEDS: Levothyroxine 150 MCG TAB PO SCH (06:07)
[2023-03-04] MEDS: Ipratropium/Albuterol 3 ML NEB NEB SCH ×4 (06:42→23:26)
[2023-03-04] MEDS: Mometasone 200 MCG/Formoterol 5 MCG 120 PUFF INHALER INH SCH ×2 (06:42→18:34)
[2023-03-04] MEDS: Vancomycin HCl 750 MG in Sodium Chloride 0.9% 250 ML 250 ML IVPB SCH ×2 (08:20→20:57)
[2023-03-04] MEDS: Potassium Chloride 20 MEQ (100 mL) BAG IVPB PRN (08:21)
[2023-03-04] MEDS: Aspirin 325 MG TAB PO SCH (08:21)
[2023-03-04] MEDS: Insulin Regular 300 UNITS/3 ML VIAL SC PRN ×3 (10:58→21:20)
[2023-03-04] MEDS: LevoFLOXacin 750 mg/D5W 750 MG in Premix 1 BAG IVPB SCH (11:13)
[2023-03-04] MEDS ORDERED: Digoxin 0.5 MG/2 ML AMP ONE (14:38)
[2023-03-04] MEDS ORDERED: Digoxin 0.5 MG/2 ML AMP SLOW IVP SCH (14:45)
[2023-03-04] MEDS: Amiodarone 450 MG, Admixture Fee 1 EACH in Dextrose 5% in Water 250 ML IVPB SCH ×2 (15:08→21:20)
[2023-03-04] MEDS: Atorvastatin Calcium 40 MG TAB PO SCH (20:57)
[2023-03-05] MEDS ORDERED: diphenhydrAMINE 25 MG CAP PO SCH (01:30)
[2023-03-05 04:03] LABS: #Eosinphils 0.2 thou/uL (0.0-0.7); #Monocytes 1.3 thou/uL (0.11-0.59); #Neutrophils 11.7 thou/uL (1.40-6.50); %Basophils 0.2 % (0.0-1.0); %Eosinophils 1.1 % (0.0-10.0); %Lymphocytes 8.4 % (21.0-51.0); %Monocytes 8.3 % (0.0-10.0); %Neutrophils 77.4 % (42.0-75.0); Hematocrit 28.7 % (42.0-52.0); Hemoglobin 9.5 g/dL (14.0-18.0); Mean Corpuscular HGB CONC 33.1 g/dL (32.0-36.0); Mean Corpuscular Hemoglobin 31.5 pg (27.0-31.0); Mean Platelet Volume 9.2 fL (7.4-10.4); Platelet Count 193 10x3/uL (130-400); Red Blood Cell (RBC) Count 3.02 mill/uL (4.70-6.10); White Blood Cell (WBC) Count 15.1 10x3/uL (4.8-10.8)
[2023-03-05 04:27] LABS: Anion Gap 16 mmol/L (10-20); BUN (Urea Nitrogen) 44 mg/dL (8.4-25.7); Calc. Creatinine Clearance 91 mL/min (70-130); Calcium 8.7 mg/dL (7.8-10.44); Carbon Dioxide 25 mmol/L (23-31); Chloride 103 mmol/L (98-107); Estimated GFR 64; Glucose 146 mg/dL (80-115); Potassium 3.8 mmol/L (3.5-5.1); Sodium 140 mmol/L (136-145)
[2023-03-05] MEDS: Meropenem 1 GM in Sodium Chloride 0.9% 100 ML IVPB SCH ×3 (05:04→22:38)
[2023-03-05] MEDS: Levothyroxine 150 MCG TAB PO SCH (05:04)
[2023-03-05] MEDS: Furosemide 40 MG (4 mL) VIAL SLOW IVP SCH ×2 (05:34→14:57)
[2023-03-05] MEDS: Ipratropium/Albuterol 3 ML NEB NEB SCH ×4 (06:26→23:05)
[2023-03-05] MEDS: Mometasone 200 MCG/Formoterol 5 MCG 120 PUFF INHALER INH SCH ×2 (06:28→19:18)
[2023-03-05] MEDS ORDERED: Metolazone 5 MG TAB PO SCH (07:45)
[2023-03-05] MEDS ORDERED: Vancomycin HCl 750 MG in Sodium Chloride 0.9% 250 ML 250 ML IVPB SCH (08:00)
[2023-03-05 08:03] LABS: Vancomycin, Trough 12.3 ug/mL
[2023-03-05] MEDS: Aspirin 325 MG TAB PO SCH (09:26)
[2023-03-05] MEDS: Vancomycin 1 GM in Premix 1 BAG IVPB SCH ×2 (09:27→20:45)
[2023-03-05] MEDS: LevoFLOXacin 750 mg/D5W 750 MG in Premix 1 BAG IVPB SCH (12:00)
[2023-03-05] MEDS: Amiodarone 450 MG, Admixture Fee 1 EACH in Dextrose 5% in Water 250 ML IVPB SCH (12:00)
[2023-03-05] MEDS: Atorvastatin Calcium 40 MG TAB PO SCH (20:45)
[2023-03-05] MEDS: Insulin Regular 300 UNITS/3 ML VIAL SC PRN (22:46)
[2023-03-06] MEDS: Amiodarone 450 MG, Admixture Fee 1 EACH in Dextrose 5% in Water 250 ML IVPB SCH (02:09)
[2023-03-06] MEDS: Insulin Regular 300 UNITS/3 ML VIAL SC PRN (04:32)
[2023-03-06 04:34] LABS: Hematocrit 29.7 % (42.0-52.0); Hemoglobin 9.5 g/dL (14.0-18.0); Manual Diff?? YES; Mean Corpuscular Volume 93.7 fl (78.0-98.0); Mean Platelet Volume 9.6 fL (7.4-10.4); Platelet Count 195 10x3/uL (130-400); RBC Distribution Width 14.8 % (11.5-14.5); Red Blood Cell (RBC) Count 3.17 mill/uL (4.70-6.10); White Blood Cell (WBC) Count 14.1 10x3/uL (4.8-10.8)
[2023-03-06 04:46] LABS: Delete Auto Diff?? YES
[2023-03-06 04:58] LABS: Carbon Dioxide 30 mmol/L (23-31); Chloride 97 mmol/L (98-107); Potassium 3.3 mmol/L (3.5-5.1); Sodium 138 mmol/L (136-145)
[2023-03-06 04:59] LABS: Anion Gap 14 mmol/L (10-20); BUN (Urea Nitrogen) 42 mg/dL (8.4-25.7); Calc. Creatinine Clearance 87 mL/min (70-130); Calcium 8.9 mg/dL (7.8-10.44); Estimated GFR 63; Glucose 162 mg/dL (80-115)
[2023-03-06] MEDS: Potassium Chloride 20 MEQ (100 mL) BAG IVPB PRN (05:41)
[2023-03-06] MEDS: Meropenem 1 GM in Sodium Chloride 0.9% 100 ML IVPB SCH (05:50)
[2023-03-06] MEDS: Furosemide 40 MG (4 mL) VIAL SLOW IVP SCH (05:50)
[2023-03-06] MEDS: Levothyroxine 150 MCG TAB PO SCH (05:50)
[2023-03-06 05:53] LABS: Band 1 % (5-11); CellaVision Operator ID lab.abc; Eosinophils 2 % (0-10); Hypochromia SLIGHT = 6-15 cells HPF (0-5); Lymphocytes 8 % (21-51); Metamyelocyte 1 % (0-0); Monocytes 7 % (0-10); Neutrophil 82 % (42-75); Nucleated RBC (Manual Ct) 1 % (0); Platelet Adequacy Comment Platelets Normal; Polychromasia SLIGHT = 2-3 cells HPF (0-2); Smudge Cells 3.9 %; Total Cell Count 103
[2023-03-06] MEDS ORDERED: Metolazone 5 MG TAB PO SCH (06:30)
[2023-03-06] MEDS: Ipratropium/Albuterol 3 ML NEB NEB SCH ×3 (07:06→18:44)
[2023-03-06] MEDS: Mometasone 200 MCG/Formoterol 5 MCG 120 PUFF INHALER INH SCH ×2 (07:09→19:21)
[2023-03-06] MEDS: Vancomycin 1 GM in Premix 1 BAG IVPB SCH (07:57)
[2023-03-06] MEDS: Aspirin 325 MG TAB PO SCH (07:57)
[2023-03-06] MEDS ORDERED: Amiodarone 200 MG TAB PO SCH (10:45)
[2023-03-06] MEDS: Furosemide 20 MG TAB PO SCH ×2 (11:35→15:20)
[2023-03-06] MEDS: LevoFLOXacin 750 mg/D5W 750 MG in Premix 1 BAG IVPB SCH (15:19)
[2023-03-06] MEDS: Enoxaparin 40 MG (0.4 mL) SYRINGE SC SCH (20:37)
[2023-03-06] MEDS: Atorvastatin Calcium 40 MG TAB PO SCH (20:37)
[2023-03-06] MEDS: Amiodarone 200 MG TAB PO SCH (20:37)
[2023-03-07] MEDS: Ipratropium/Albuterol 3 ML NEB NEB SCH ×5 (00:46→23:42)
[2023-03-07 04:59] LABS: #Eosinphils 0.2 thou/uL (0.0-0.7); #Monocytes 1.2 thou/uL (0.11-0.59); #Neutrophils 11.3 thou/uL (1.40-6.50); %Basophils 0.3 % (0.0-1.0); %Eosinophils 1.6 % (0.0-10.0); %Monocytes 7.9 % (0.0-10.0); %Neutrophils 77.2 % (42.0-75.0); Hematocrit 31.2 % (42.0-52.0); Hemoglobin 10.2 g/dL (14.0-18.0); Mean Corpuscular HGB CONC 32.7 g/dL (32.0-36.0); Mean Corpuscular Hemoglobin 30.3 pg (27.0-31.0); Mean Corpuscular Volume 92.6 fl (78.0-98.0); Mean Platelet Volume 9.2 fL (7.4-10.4); Platelet Count 221 10x3/uL (130-400); RBC Distribution Width 15.1 % (11.5-14.5); Red Blood Cell (RBC) Count 3.37 mill/uL (4.70-6.10); White Blood Cell (WBC) Count 14.6 10x3/uL (4.8-10.8)
[2023-03-07 05:18] LABS: Anion Gap 17 mmol/L (10-20); BUN (Urea Nitrogen) 48 mg/dL (8.4-25.7); Calc. Creatinine Clearance 75 mL/min (70-130); Calcium 9.6 mg/dL (7.8-10.44); Carbon Dioxide 30 mmol/L (23-31); Chloride 93 mmol/L (98-107); Estimated GFR 53; Glucose 176 mg/dL (80-115); Sodium 137 mmol/L (136-145)
[2023-03-07] MEDS: Potassium Chloride 20 MEQ (100 mL) BAG IVPB PRN (05:25)
[2023-03-07] MEDS: Insulin Regular 300 UNITS/3 ML VIAL SC PRN ×4 (05:25→20:25)
[2023-03-07] MEDS: Levothyroxine 150 MCG TAB PO SCH (05:26)
[2023-03-07] MEDS: Mometasone 200 MCG/Formoterol 5 MCG 120 PUFF INHALER INH SCH ×2 (07:33→18:39)
[2023-03-07] MEDS ORDERED: Potassium Chloride 20 MEQ TAB PO SCH ×3 (08:00→20:00)
[2023-03-07] MEDS ORDERED: Electrolyte Replacement Protocol 1 EACH FS SCH (08:00)
[2023-03-07 08:08] VITALS: BMI 34.7
[2023-03-07] MEDS: Amiodarone 200 MG TAB PO SCH ×2 (08:10→20:13)
[2023-03-07] MEDS: Furosemide 20 MG TAB PO SCH ×2 (08:10→14:12)
[2023-03-07] MEDS: Aspirin 325 MG TAB PO SCH (08:10)
[2023-03-07 12:45] LABS: Potassium 3.5 mmol/L (3.5-5.1)
[2023-03-07 19:13] LABS: Potassium 3.1 mmol/L (3.5-5.1)
[2023-03-07] MEDS: Atorvastatin Calcium 40 MG TAB PO SCH (20:12)
[2023-03-07] MEDS: Enoxaparin 40 MG (0.4 mL) SYRINGE SC SCH (20:12)
[2023-03-07] MEDS: Melatonin 3 MG TAB PO SCH (20:13)
[2023-03-08 01:09] LABS: Potassium 3.4 mmol/L (3.5-5.1)
[2023-03-08] MEDS ORDERED: Potassium Chloride 20 MEQ TAB PO SCH ×2 (01:15→08:00)
[2023-03-08 04:29] LABS: #Basophils 0.1 thou/uL (0.0-0.2); #Eosinphils 0.3 thou/uL (0.0-0.7); #Monocytes 1.2 thou/uL (0.11-0.59); #Neutrophils 11.3 thou/uL (1.40-6.50); %Basophils 0.3 % (0.0-1.0); %Lymphocytes 10.3 % (21.0-51.0); %Neutrophils 76.9 % (42.0-75.0); Hematocrit 31.7 % (42.0-52.0); Hemoglobin 10.3 g/dL (14.0-18.0); Mean Corpuscular HGB CONC 32.5 g/dL (32.0-36.0); Mean Corpuscular Hemoglobin 29.9 pg (27.0-31.0); Mean Corpuscular Volume 91.9 fl (78.0-98.0); Mean Platelet Volume 9.1 fL (7.4-10.4); Platelet Count 231 10x3/uL (130-400); RBC Distribution Width 15.2 % (11.5-14.5); Red Blood Cell (RBC) Count 3.45 mill/uL (4.70-6.10); White Blood Cell (WBC) Count 14.7 10x3/uL (4.8-10.8)
[2023-03-08 04:57] LABS: Anion Gap 18 mmol/L (10-20); BUN (Urea Nitrogen) 47 mg/dL (8.4-25.7); Calc. Creatinine Clearance 73 mL/min (70-130); Calcium 9.5 mg/dL (7.8-10.44); Carbon Dioxide 30 mmol/L (23-31); Chloride 91 mmol/L (98-107); Estimated GFR 52; Glucose 178 mg/dL (80-115); Potassium 3.4 mmol/L (3.5-5.1); Sodium 136 mmol/L (136-145)
[2023-03-08] MEDS: Levothyroxine 150 MCG TAB PO SCH (05:30)
[2023-03-08] MEDS: Insulin Regular 300 UNITS/3 ML VIAL SC PRN ×3 (05:32→16:35)
[2023-03-08] MEDS: Ipratropium/Albuterol 3 ML NEB NEB SCH ×4 (06:55→23:14)
[2023-03-08] MEDS: Mometasone 200 MCG/Formoterol 5 MCG 120 PUFF INHALER INH SCH ×2 (06:57→19:35)
[2023-03-08] MEDS: Amiodarone 200 MG TAB PO SCH ×2 (08:40→20:51)
[2023-03-08] MEDS: Aspirin 325 MG TAB PO SCH (08:40)
[2023-03-08] MEDS: Furosemide 40 MG TAB PO SCH (08:40)
[2023-03-08] MEDS ORDERED: Nicotine 14 MG PATCH TD SCH (09:00)
[2023-03-08 12:24] LABS: Actual Bicarbonate (HCO3a) 20.3 mEq/L (22-28); Analyzer IN Cardio OR; Base Excess (BEa) -4.9 mEq/L (-2.0 to +3.0); CO2 Tension 37.8 mmHg (35.0-45.0); Calcium, Ionized (arterial) 1.15 mmol/L (1.12-1.30); Carboxyhemoglobin (COHb) 0.3 gm% (0.0-3.0); Hematocrit-ABG 35 % (42.0-52.0); Hemoglobin (Hb) 11.8 g/dL (14.0-18.0); O2 Tension (PaO2), arterial 213.7 mmHg (> 80.0); Potassium - ABG Lab 4.07 mmol/L (3.70-5.30); pH, Arterial 7.347 (7.35-7.45)
[2023-03-08 12:25] LABS: Actual Bicarbonate (HCO3a) 24.4 mEq/L (22-28); Analyzer IN Cardio OR; Base Excess (BEa) -1.7 mEq/L (-2.0 to +3.0); CO2 Tension 47.5 mmHg (35.0-45.0); Calcium, Ionized (arterial) 1.05 mmol/L (1.12-1.30); Hematocrit-ABG 26 % (42.0-52.0); O2 Tension (PaO2), arterial 287.9 mmHg (> 80.0); Potassium - ABG Lab 4.08 mmol/L (3.70-5.30); pH, Arterial 7.328 (7.35-7.45)
[2023-03-08 12:25] LABS: Actual Bicarbonate (HCO3a) 22.5 mEq/L (22-28); Analyzer IN Cardio OR; Base Excess (BEa) -2.4 mEq/L (-2.0 to +3.0); CO2 Tension 39.3 mmHg (35.0-45.0); Calcium, Ionized (arterial) 0.95 mmol/L (1.12-1.30); Carboxyhemoglobin (COHb) 0.3 gm% (0.0-3.0); Hematocrit-ABG 28 % (42.0-52.0); Hemoglobin (Hb) 9.4 g/dL (14.0-18.0); O2 Tension (PaO2), arterial 374.1 mmHg (> 80.0); Potassium - ABG Lab 3.82 mmol/L (3.70-5.30); pH, Arterial 7.376 (7.35-7.45)
[2023-03-08 12:25] LABS: Actual Bicarbonate (HCO3a) 21.3 mEq/L (22-28); Analyzer IN Cardio OR; Base Excess (BEa) -4.8 mEq/L (-2.0 to +3.0); CO2 Tension 43.2 mmHg (35.0-45.0); Calcium, Ionized (arterial) 1.14 mmol/L (1.12-1.30); Carboxyhemoglobin (COHb) 0.4 gm% (0.0-3.0); Hematocrit-ABG 37 % (42.0-52.0); Hemoglobin (Hb) 12.6 g/dL (14.0-18.0); O2 Tension (PaO2), arterial 85.7 mmHg (> 80.0); pH, Arterial 7.311 (7.35-7.45)
[2023-03-08 12:26] LABS: Actual Bicarbonate (HCO3a) 22.4 mEq/L (22-28); Analyzer IN Cardio OR; Base Excess (BEa) -3.6 mEq/L (-2.0 to +3.0); CO2 Tension 44.7 mmHg (35.0-45.0); Calcium, Ionized (arterial) 1.16 mmol/L (1.12-1.30); Carboxyhemoglobin (COHb) 0.1 gm% (0.0-3.0); Hematocrit-ABG 28 % (42.0-52.0); Hemoglobin (Hb) 9.6 g/dL (14.0-18.0); O2 Tension (PaO2), arterial 71.9 mmHg (> 80.0); Potassium - ABG Lab 3.73 mmol/L (3.70-5.30); pH, Arterial 7.318 (7.35-7.45)
[2023-03-08 12:26] LABS: Actual Bicarbonate (HCO3a) 24.1 mEq/L (22-28); Analyzer IN Cardio OR; Base Excess (BEa) -1.5 mEq/L (-2.0 to +3.0); CO2 Tension 44.7 mmHg (35.0-45.0); Calcium, Ionized (arterial) 1.02 mmol/L (1.12-1.30); Carboxyhemoglobin (COHb) 0.2 gm% (0.0-3.0); Hematocrit-ABG 25 % (42.0-52.0); Hemoglobin (Hb) 8.6 g/dL (14.0-18.0); O2 Tension (PaO2), arterial 333.1 mmHg (> 80.0); Potassium - ABG Lab 4.26 mmol/L (3.70-5.30)
[2023-03-08 12:26] LABS: Analyzer IN Cardio OR; Base Excess (BEa) -4.7 mEq/L (-2.0 to +3.0); CO2 Tension 47.6 mmHg (35.0-45.0); Calcium, Ionized (arterial) 1.14 mmol/L (1.12-1.30); Carboxyhemoglobin (COHb) 0.3 gm% (0.0-3.0); Hematocrit-ABG 34 % (42.0-52.0); Hemoglobin (Hb) 11.4 g/dL (14.0-18.0); O2 Tension (PaO2), arterial 71.3 mmHg (> 80.0); Potassium - ABG Lab 3.28 mmol/L (3.70-5.30); pH, Arterial 7.283 (7.35-7.45)
[2023-03-08 12:27] LABS: Puncture Site Arterial Line
[2023-03-08 12:27] LABS: Puncture Site Arterial Line
[2023-03-08 12:27] LABS: Puncture Site Arterial Line
[2023-03-08 12:28] LABS: Puncture Site Arterial Line
[2023-03-08 12:28] LABS: Puncture Site Arterial Line
[2023-03-08 12:28] LABS: Puncture Site Arterial Line
[2023-03-08 12:29] LABS: Puncture Site Arterial Line
[2023-03-08] MEDS ORDERED: traMADol HCl 50 MG TAB PO PRN (15:53)
[2023-03-08] MEDS: Melatonin 3 MG TAB PO SCH (20:51)
[2023-03-08] MEDS: Atorvastatin Calcium 40 MG TAB PO SCH (20:51)
[2023-03-08] MEDS: Enoxaparin 40 MG (0.4 mL) SYRINGE SC SCH (20:51)
[2023-03-09] MEDS: Levothyroxine 150 MCG TAB PO SCH (04:53)
[2023-03-09 05:01] VITALS: TEMP 97.8
[2023-03-09] MEDS: Insulin Regular 300 UNITS/3 ML VIAL SC PRN (06:30)
[2023-03-09] MEDS: Mometasone 200 MCG/Formoterol 5 MCG 120 PUFF INHALER INH SCH (07:08)
[2023-03-09] MEDS: Ipratropium/Albuterol 3 ML NEB NEB SCH ×2 (07:09→13:06)
[2023-03-09] MEDS ORDERED: Amiodarone 200 MG TAB PO SCH (09:00)
[2023-03-09] MEDS: Furosemide 40 MG TAB PO SCH (09:32)
[2023-03-09] MEDS: Aspirin 325 MG TAB PO SCH (09:32)
[2023-03-09 10:57] VITALS: BP 99/59
== END 2023-03-09 15:30 | disposition home or self-care (01) | DRG 216 ==
LOC: ERS 21:43 → IMCU/EMU 02-21 00:32 → CCU 02-21 13:28 → IMCU/EMU 02-22 17:54 → CCU 02-27 07:58 → 2NO 03-08 18:16
PROVIDERS: ADMIT Student in an Organized Health Care Education/Training Program; ATTEND Family Medicine
PROC: B2111ZZ Fluoroscopy of Multiple Coronary Arteries using Low Osmolar Contrast (ICD-10-PCS; 2023-02-21)
PROC: 4A023N7 Measurement of Cardiac Sampling and Pressure, Left Heart, Percutaneous Approach (ICD-10-PCS; 2023-02-21)
PROC: B2151ZZ Fluoroscopy of Left Heart using Low Osmolar Contrast (ICD-10-PCS; 2023-02-21)
PROC: 30233N1 Transfusion of Nonautologous Red Blood Cells into Peripheral Vein, Percutaneous Approach (ICD-10-PCS; 2023-02-21)
PROC: 5A09357 Assistance with Respiratory Ventilation, Less than 24 Consecutive Hours, Continuous Positive Airway Pressure (ICD-10-PCS; 2023-02-21)
PROC: 02RF0JZ Replacement of Aortic Valve with Synthetic Substitute, Open Approach (ICD-10-PCS; principal; 2023-02-27)
PROC: 02L70CK Occlusion of Left Atrial Appendage with Extraluminal Device, Open Approach (ICD-10-PCS; 2023-02-27)
PROC: 4A133R1 Monitoring of Arterial Saturation, Peripheral, Percutaneous Approach (ICD-10-PCS; 2023-02-27)
PROC: 3E033XZ Introduction of Vasopressor into Peripheral Vein, Percutaneous Approach (ICD-10-PCS; 2023-02-27)
PROC: 30233J1 Transfusion of Nonautologous Serum Albumin into Peripheral Vein, Percutaneous Approach (ICD-10-PCS; 2023-02-27)
PROC: 5A1945Z Respiratory Ventilation, 24-96 Consecutive Hours (ICD-10-PCS; 2023-03-02)
PROC: 0BH17EZ Insertion of Endotracheal Airway into Trachea, Via Natural or Artificial Opening (ICD-10-PCS; 2023-03-02)
DX: I11.0 Hypertensive heart disease with heart failure (principal); I21.4 Non-ST elevation (NSTEMI) myocardial infarction; I50.43 Acute on chronic combined systolic (congestive) and diastolic (congestive) heart failure; J96.01 Acute respiratory failure with hypoxia; K92.1 Melena; N17.9 Acute kidney failure, unspecified; I44.2 Atrioventricular block, complete; I35.0 Nonrheumatic aortic (valve) stenosis; I25.10 Atherosclerotic heart disease of native coronary artery without angina pectoris; I95.9 Hypotension, unspecified; E66.9 Obesity, unspecified; G47.33 Obstructive sleep apnea (adult) (pediatric); E11.9 Type 2 diabetes mellitus without complications; E78.5 Hyperlipidemia, unspecified; E03.9 Hypothyroidism, unspecified; E87.5 Hyperkalemia; I27.20 Pulmonary hypertension, unspecified; I48.91 Unspecified atrial fibrillation; Z98.890 Other specified postprocedural states; Z68.33 Body mass index [BMI] 33.0-33.9, adult
CPT/HCPCS: 33208; 33225; 36415; 36416; 36430; 36600; 71045; 71275; 80048; 80053; 80202; 81001; 82274; 82805; 83036; 83605; 83690; 83735; 83880; 84100; 84145; 84484; 85025; 85347; 85379; 85610; 85730; 86140; 86850; 86900; 86901; 87040; 87077; 87081; 87149; 87186; 93005; 93010; 93306; 93456; 93572; 93798; 93799; 94002; 94003; 94640; 94660; 94664; 94760; 96361; 96374; 96375; 99152; 99153; A4311; C1713; C1751; C1760; C1769; C1776; C1887; C1889; C1894; C1898; C1900; C2621; C9113; J0153; J0171; J0282; J0665; J1100; J1160; J1200; J1265; J1580; J1642; J1644; J1650; J1815; J1885; J1940; J1956; J2001; J2150; J2185; J2250; J2272; J2405; J2440; J2704; J2720; J2930; J3010; J3370; J3370-JW; J3475; J3480; J3490; J7030; J7042; J7050; J7070; J7620; P9016; P9045; P9047; Q0162; Q9967; S0017; S0028